=== PATIENT | female | born 2005 | race Two or more races ===

== ENCOUNTER 2024-12-04 15:59 | Emergency (ER) | payer MEDICAID, OTHER ==
[~2024-12-04] VITALS: Ht 165.1 cm; Wt 59.1 kg
[2024-12-04 16:15] VITALS: BP 110/69; PULSE 88; RESP 18; TEMP 97.3; O2SAT 96
--- NOTE | 2024-12-04 16:20 | ED.PDOC ---
SOB-HPI HPI Comments 19 y.o female presents to the ED for a chief complain of flu like symptoms that include a dry cough, congestion, fever, runny nose that started 2 days ago associated with new onset sore throat this morning. Patient reports symptoms have been constant, mentions itchy sensation and the inability to sneeze. Patient denies any chest pain, nausea, vomiting, diarrhea, abdominal pain, or sick contact exposure. She also denies medical history or allergies. States she had these identical symptoms in the past and it was due to sinusitis and is requesting antibiotics. Chief Complaint: Flu like Time Seen by MD: 16:10 Primary Care Provider: UNKNOWN Reviewed notes: Nurses Notes, Medications, Allergies Information Source: Patient Mode of Arrival: Ambulatory Severity: Moderate Timing: Days (2) Duration: Since onset Context: At Rest PE Risk Factors: None History of: None Modifying Factors: Nothing Associated Signs and Symptoms: Cough, Sore Throat If cough with SOB: Productive Past Medical History PAST MEDICAL HISTORY: Denies Surgical History: Denies all surgeries COOK DESSERT History: No Pertinent COOK DESSERT History Family History Family History: Reviewed,noncontributory to illness Social History Smoker: Non-Smoker Alcohol: Denies ETOH Use Drugs: Denies Drug Use Lives In: Home Constitutional: reports: fever; denies: chills, diaphoresis, fatigue, malaise, sweats, weakness, others EENTM: reports: nasal discharge, nose congestion, throat pain, throat swelling; denies: blurred vision, double vision, ear bleeding, ear discharge, ear drainage, ear pain, ear ringing, eye pain, eye redness, hearing loss, mouth pain, mouth swelling, nose bleeding, nose pain, photophobia, tearing, voice changes, others Respiratory: reports: cough; denies: hemoptysis, orthopnea, SOB at rest, shortness of breath, SOB with excertion, stridor, wheezing, others Cardiovascular: denies: chest pain, dizzy spells, diaphoresis, Dyspnea on exertion, edema, irregular heart beat, left arm pain, lightheadedness, palpitations, PND, syncope, others Gastrointestinal: denies: abdomen distended, abdominal pain, blood streaked bowels, constipated, diarrhea, dysphagia, difficulty swallowing, hematemesis, melena, nausea, poor appetite, poor fluid intake, rectal bleeding, rectal pain, vomiting, others Genitourinary: denies: abnormal vagina bleeding, burning, dyspareunia, dysuria, flank pain, frequency, hematuria, incontinence, pain, , vagina discharge, urgency, others Neurological: denies: dizziness, fainting, headache, left sided numbness, left sided weakness, numbness, paresthesia, pre-existing deficit, right sided numbness, right sided weakness, seizure, speech problems, tingling, tremors, weakness, others Musculoskeletal: denies: back pain, gout, joint pain, joint swelling, muscle pain, muscle stiffness, neck pain, others Integumetry: denies: bruises, change in color, change in hair/nails, dryness, laceration, lesions, lumps, rash, wounds, others Allergic/Immunocompromised: denies: Difficulty Healing, Frequent Infections, Hives, Itching, others Hematologic/Lymphatic: denies: anemia, blood clots, easy bleeding, easy bruising, swollen glands, others Endocrine: denies: excessive hunger, excessive sweating, excessive thirst, excessive urination, flushing, intolerance to cold, intolerance to heat, unexplained weight gain, unexplained weight loss, others All Other Systems: Reviewed and Negative Physical Exam General Appearance: No Apparent Distress, Normal HEENT: Pharyngeal Erythema, TMs Normal, Other (No pharyngeal exudates, mild tenderness to palpation in bilateral maxillary sinuses, no overlying erythema or swelling, no mastoid TTP bilaterally no erythema or bulging) Neck: Full Range of Motion, Non-Tender, Normal, Normal Inspection Respiratory: Chest Non-Tender, Lungs Clear, No Accessory Muscle Use, No Respiratory Distress, Normal Breath Sounds Cardiovascular: No Edema, No JVD, No Murmur, No Gallop, Normal Peripheral Pulses, Regular Rate/Rhythm Breast Exam: Deferred Gastrointestinal: No Organomegaly, Non Tender, No Pulsatile Mass, Normal Bowel Sounds, Soft Genitalia: Deferred Pelvic: Deferred Rectal: Deferred Extremities: No calf tenderness, Normal capillary refill, Normal inspection, Normal range of motion, Non-tender, No pedal edema Musculoskeletal : Apperance: Normal Neurologic: Alert, tester wafer substrate II-XII nml as Tested, No Motor Deficits, Normal Affect, Normal Mood, No Sensory Deficits Cerebellar Function: NOT DONE Reflexes: NOT DONE Skin: Dry, Normal Color, Warm Lymphatic: No Adenopathy Was a procedure done? Was a procedure done?: No Differential Dx Differential Diagnosis: Bronchitis, Pneumonia, Sinusitis, URI, Other (Sinusitis) X-Ray, Labs, Meds, VS Vital Signs Date Time Temp Pulse Resp B/P (MAP) Pulse Ox O2 Delivery O2 Flow Rate FiO2 12/04/24 16:15 88 18 96 Room Air 12/04/24 16:15 97.3 88 18 110/69 (83) 96 97.3 12/04/24 16:06 97.3 88 18 110/66 (81) 96 97.3 X-Ray, Labs, Meds, VS Comment Patient presents with a constellation of symptoms most closely representing a viral upper respiratory illness vs sinusitis. Vital signs are stable and patient is tolerating p.o.. Physical exam and workup overall unremarkable for any significant acute pathology such as pneumonia, epiglottitis, retropharyngeal abscess, peritonsillar abscess, strep throat, otitis media, or mastoiditis. Patient was given instructions on maintaining good oral rehydration, using [id number] medications for fever/pain, and honey for cough. Antibiotics were prescribed to cover for sinusitis although patient was told not to take them unless she does not improve after two more days. I instructed the patient to follow up with their primary care provider within 2-3 days for re-evaluation. I provided the patient with return precautions for worsening of symptoms, persistent fever, p.o. intolerance, or any other concerning symptoms. Patient expressed understanding and was discharged home in stable condition in no distress. Time of 1ST Reevaluation: 16:16 Reevaluation 1ST: Unchanged Patient Education/Counseling: Diagnosis, Treatment, Prognosis Family Education/Counseling: No Family Present Departure 1 Departure Time of Disposition: 16:30 Impression: Primary Impression: Sinusitis Additional Impression: Viral URI Disposition: HOME / SELF CARE / HOMELESS Condition: Stable e-Prescriptions Amoxicillin & Pot Clavulanate (AUGMENTIN TABLET) 875 Mg Tb 875 MG PO BID for 10 Days, #20 TAB Prov: SAMANTHA DICKSON MD 12/04/24 Discharged With: Self Critical Care Note Critical Care Time?: No Stability Stability form required: No I personally scribed for SAMANTHA DICKSON MD ([email or web address]) on 12/04/24 at 16:20. Electronically submitted by Halina Rodriguez ([facility]). SAMANTHA DICKSON MD Dec 04, 2024 16:20
[2024-12-04] MEDS ORDERED: AUG875T PO (16:24)
== END 2024-12-04 16:28 | disposition home or self-care (01) ==
LOC: ER 16:20
DX: J32.9 Chronic sinusitis, unspecified (principal); J06.9 Acute upper respiratory infection, unspecified; B97.89 Other viral agents as the cause of diseases classified elsewhere

== ENCOUNTER 2025-01-07 17:38 | Emergency (ER) | payer MEDICAID ==
[~2025-01-07] VITALS: Ht 165.1 cm; Wt 60.5 kg
[~2025-01-07 17:38] MED LIST: AUG875T PO
[2025-01-07 17:46] VITALS: BP 109/49; PULSE 75; RESP 18; TEMP 98.7; O2SAT 97
--- NOTE | 2025-01-07 17:51 | ED.PDOC ---
History of Present Illness HPI Comments 19-year-old female presents to the ER with no prior history and with a chief complaint headache. Patient reports on the headache starting this morning and tried sleeping in off but the headache remained. Patient did take 800 mg of ibuprofen at home with the headaches still not subsiding. Denies chills, fever, N/V/D, SOB, head trauma, drug use, blood pressure issues, alcohol intake, CP. No other associated symptoms, modifiers, recent injuries or sick contacts present at this time. Patient denies any history of migraines. Chief Complaint: Headache Time Seen by MD: 17:50 Primary Care Provider: UNKNOWN Reviewed Notes: Nurses Notes, Medications, Allergies Allergies: Coded Allergies: NO KNOWN ALLERGIES (Unverified , 12/04/24) Home Meds Active Scripts Amoxicillin & Pot Clavulanate (AUGMENTIN TABLET) 875 Mg Tb, 875 MG PO BID for 10 Days, #20 TAB Prov:SAMANTHA DICKSON MD 12/04/24 Information Source: Patient Mode of Arrival: Ambulatory Severity: Moderate Timing: Hours Duration: Since onset, Hours Prehospital treatment: None Past Medical History PAST MEDICAL HISTORY: Denies Surgical History: Denies all surgeries FINISHING AREA OPERATOR History: No Pertinent FINISHING AREA OPERATOR History Family History Family History: Reviewed,noncontributory to illness, Unknown Social History Smoker: Non-Smoker Alcohol: Denies ETOH Use Drugs: Denies Drug Use Lives In: Home Constitutional: denies: chills, diaphoresis, fatigue, fever, malaise, sweats, weakness, others EENTM: denies: blurred vision, double vision, ear bleeding, ear discharge, ear drainage, ear pain, ear ringing, eye pain, eye redness, hearing loss, mouth pain, mouth swelling, nasal discharge, nose bleeding, nose congestion, nose pain, photophobia, tearing, throat pain, throat swelling, voice changes, others Respiratory: denies: cough, hemoptysis, orthopnea, SOB at rest, shortness of breath, SOB with excertion, stridor, wheezing, others Cardiovascular: denies: chest pain, dizzy spells, diaphoresis, Dyspnea on exertion, edema, irregular heart beat, left arm pain, lightheadedness, palpitations, PND, syncope, others Gastrointestinal: denies: abdomen distended, abdominal pain, blood streaked bowels, constipated, diarrhea, dysphagia, difficulty swallowing, hematemesis, melena, nausea, poor appetite, poor fluid intake, rectal bleeding, rectal pain, vomiting, others Genitourinary: denies: abnormal vagina bleeding, burning, dyspareunia, dysuria, flank pain, frequency, hematuria, incontinence, pain, , vagina discharge, urgency, others Neurological: reports: headache; denies: dizziness, fainting, left sided numbness, left sided weakness, numbness, paresthesia, pre-existing deficit, right sided numbness, right sided weakness, seizure, speech problems, tingling, tremors, weakness, others Musculoskeletal: denies: back pain, gout, joint pain, joint swelling, muscle pain, muscle stiffness, neck pain, others Integumetry: denies: bruises, change in color, change in hair/nails, dryness, l aceration, lesions, lumps, rash, wounds, others Allergic/Immunocompromised: denies: Difficulty Healing, Frequent Infections, Hives, Itching, others Hematologic/Lymphatic: denies: anemia, blood clots, easy bleeding, easy bruising, swollen glands, others Endocrine: denies: excessive hunger, excessive sweating, excessive thirst, excessive urination, flushing, intolerance to cold, intolerance to heat, unexplained weight gain, unexplained weight loss, others Psychiatric: denies: anxiety, bipolar disorder, depression, hopeless, panic disorder, schizophrenia, sleepless, suicidal, others All Other Systems: Reviewed and Negative Physical Exam Exam Comments Patient did not look toxic at arrival. General Appearance: Moderate Distress (Moderate distress due to right-sided headache concern.), Normal HEENT: Head (Cranial exam was unremarkable. Patient complains of right-sided headache extending from the right-sided forehead to the temporal and parietal lobe. No signs of trauma. No skull depressions or deformities.), Normal ENT Inspection, Pharynx Normal, TMs Normal Neck: Full Range of Motion, Non-Tender, Normal, Normal Inspection Respiratory: Chest Non-Tender, Lungs Clear, No Accessory Muscle Use, No Respiratory Distress, Normal Breath Sounds Cardiovascular: No Edema, No JVD, No Murmur, No Gallop, Normal Peripheral Pulses, Regular Rate/Rhythm Breast Exam: Deferred Gastrointestinal: No Organomegaly, Non Tender, No Pulsatile Mass, Normal Bowel Sounds, Soft Genitalia: Deferred Pelvic: Deferred Rectal: Deferred Extremities: No calf tenderness, Normal capillary refill, Normal inspection, Normal range of motion, Non-tender, No pedal edema Musculoskeletal : Apperance: Normal Neurologic: Alert, No Motor Deficits, Normal Affect, Normal Mood, No Sensory Deficits Cerebellar Function: Normal Reflexes: Normal Skin: Dry, Normal Color, Warm Lymphatic: No Adenopathy Was a procedure done? Was a procedure done?: No Differential Dx Considerations may include: Headache, dehydration X-Ray, Labs, Meds, VS Vital Signs Date Time Temp Pulse Resp B/P (MAP) Pulse Ox O2 Delivery O2 Flow Rate FiO2 01/07/25 17:46 98.7 75 18 109/49 (69) 97 98.7 X-Ray, Labs, Meds, VS Comment Spent time discussing the headache with the patient. Patient is a normally healthy young lady and therefore, as may be suffering from some dehydration that is causing the headache concerns. Patient did not require a head CT as I was no trauma and the patient did not appear to have pain out of proportion. Patient will be sent home with a very short course of Vanderwagen and Zofran as needed. Advised patient that if the headaches continue, patient should return to ED for imaging evaluation or follow up with primary care provider. Time of 1ST Reevaluation: 18:34 Reevaluation 1ST: Unchanged Consultation: PCP Patient Education/Counseling: Diagnosis, Treatment, Prognosis Family Education/Counseling: Diagnosis, Treatment, No Family Present Departure 1 Departure Time of Disposition: 18:34 Impression: Primary Impression: Generalized headaches Disposition: HOME / SELF CARE / HOMELESS Condition: Stable Additional Instructions: Advised pain medication as needed for symptomatic relief as well as good hydration. If symptoms continue, patient should return to ED for possible imaging evaluation or, follow up with the primary care provider for continued conversations and management. e-Prescriptions Ondansetron Odt 4MG Tab (ZOFRAN PO) 4 Mg Tb 4 MG PO Q6HP PRN, #10 TAB ODT TAB-DISSOLVE IN MOUTH, THEN SWALLOW Prov: ADELA AMBRIZ PAC 01/07/25 Hydrocodone-Acetaminophen (Hydrocodone Bitartrate/AC 10-325 mg) 1 Tab Tab 1 TAB PO Q8HP PRN, #3 TAB Prov: ADELA AMBRIZ PAC 01/07/25 Discharged With: Self Critical Care Note Critical Care Time?: No Stability Stability form required: No Heart Score Heart Score: Heart Score Response (Comments) Value History N/A 0 EKG N/A 0 Age N/A 0 Risk Factors N/A 0 Troponin N/A 0 Total 0 I personally scribed for ADELA AMBRIZ ([email or web address]) on 01/07/25 at 17:51. Electronically submitted by Anand Salazar ([email or web address]). ADELA AMBRIZ PAC January 07, 2025 17:51
[2025-01-07] MEDS ORDERED: ZOFR4T PO (18:35)
[2025-01-07] MEDS ORDERED: HYDR-4798 PO (18:35)
== END 2025-01-07 21:56 | disposition home or self-care (01) ==
LOC: ER 17:38
DX: R51.9 Headache, unspecified (principal); Z79.899 Other long term (current) drug therapy

== ENCOUNTER 2025-08-13 17:11 | Emergency (ER) | payer MEDICAID ==
[~2025-08-13] VITALS: Ht 162.6 cm; Wt 62.4 kg
[~2025-08-13 17:11] MED LIST changes: +HYDR-4798 PO; +ZOFR4T PO
[2025-08-13 17:13] VITALS: BP 113/64; PULSE 89; RESP 14; TEMP 98.3; O2SAT 96
== END 2025-08-13 20:42 | disposition left against medical advice (07) ==
LOC: ER 17:11
DX: M79.605 Pain in left leg (principal); Z53.21 Procedure and treatment not carried out due to patient leaving prior to being seen by health care provider
CPT/HCPCS: 81025